=== PATIENT | male | born 1980 | race Caucasian/White ===

== ENCOUNTER 2023-04-10 11:53 | Emergency (ER) | payer MEDICAID ==
[2023-04-10] MEDS ORDERED: Ketorolac 60 MG/2 ML SDV IM ONE (13:41)
== END 2023-04-10 21:36 | disposition home or self-care (01) ==
LOC: JD.ED 11:53
DX: S89.91XA Unspecified injury of right lower leg, initial encounter (principal); R53.1 Weakness; F17.210 Nicotine dependence, cigarettes, uncomplicated; B20 Human immunodeficiency virus [HIV] disease; X50.1XXA Overexertion from prolonged static or awkward postures, initial encounter
CPT/HCPCS: 73564; 96372; 99283; J1885